=== PATIENT | female | born 1995 | race Two or more races ===

== ENCOUNTER 2018-03-22 19:12 | Emergency (ER) | payer OTHER ==
[~2018-03-22] VITALS: Ht 154.9 cm; Wt 67.1 kg
[2018-03-22] MEDS ORDERED: ONDANSETRON 4 MG TAB.RAPDIS ONE (20:23)
[2018-03-22] MEDS ORDERED: ONDANSETRON 4 MG TAB.RAPDIS SL ONE (20:30)
--- NOTE | 2018-03-22 20:31 | NUR ---
URINE SENT TO LAB
[2018-03-22 20:37] LABS: APPEARANCE,URINE Slightly Cloudy (CLEAR); BILIRUBIN,URINE Negative (NEGATIVE); BLOOD, URINE Negative Ery/uL (NEGATIVE); COLOR,URINE Yellow (YELLOW); KETONES,URINE Negative (NEGATIVE); LEUKOCYTE ESTERASE ,URINE Negative (NEGATIVE); NITRITE, URINE Negative (NEGATIVE); PH,URINE 8.5 (5.0-8.0); PROTEIN,URINE Negative (NEGATIVE); UGLUCOSE Negative (NEGATIVE); UROBILINOGEN,URINE 0.2 EU/dL (0.2)
[2018-03-22] MEDS ORDERED: IV NS 0.9% 1,000 ML BAG IV ONE (21:00)
--- NOTE | 2018-03-22 21:00 | NUR ---
PT OFF TO CT
--- NOTE | 2018-03-22 21:10 | NUR ---
PT BACK FROM CT
--- NOTE | 2018-03-22 21:52 | NUR ---
PT STATES SHE IS FEELING BETTER WITH LESS N/V
[2018-03-22 21:58] VITALS: BP 130/81
== END 2018-03-22 21:59 | disposition home or self-care (01) ==
LOC: ER 19:13
DX: K59.00 Constipation, unspecified (principal); M54.5 Low back pain; R11.0 Nausea; R10.31 Right lower quadrant pain; F10.10 Alcohol abuse, uncomplicated; Y90.9 Presence of alcohol in blood, level not specified
CPT/HCPCS: 74176; 81001; 84703; 99285; A4606; Q0162; Z7610; 81000-TC